=== PATIENT | female | born 1975 | race Caucasian/White ===

== ENCOUNTER 2020-05-10 09:41 | Emergency (ER) | payer OTHER ==
[~2020-05-10] VITALS: Ht 167.6 cm; Wt 103.0 kg
[~2020-05-10 09:41] MED LIST: TOBRADEX EYE DR10 ML OP
[2020-05-10] MEDS ORDERED: KETO10TA2 PO (16:28)
[2020-05-10] MEDS ORDERED: LEVSIN/SL0.125 MG SL (16:28)
[2020-05-10] MEDS ORDERED: PEPCID AC20 MG PO (16:28)
== END 2020-05-10 16:43 | disposition home or self-care (01) ==
LOC: ER 09:41
DX: K80.20 Calculus of gallbladder without cholecystitis without obstruction (principal); R10.11 Right upper quadrant pain